=== PATIENT | female | born 1945 | race Two or more races ===

== ENCOUNTER 2024-12-23 10:53 | Inpatient (IN) | payer OTHER ==
[2024-12-23 11:40] VITALS: BMI 27.4
[2024-12-23 12:41] LABS: BASO % 0.5 % (0-2.0); HEMATOCRIT 31.6 % (32.4-45.2); HEMOGLOBIN 10.4 GM/dL (10.7-15.3); LYMPH % 19.7 % (8-40); MCH 27.8 pg (25.7-33.7); MCHC 32.8 g/dl (32.0-36.0); MEAN PLT VOLUME 9.6 fl (7.5-11.1); MONO % 13.8 % (3.8-10.2); PLATELET COUNT 184 10^3/uL (134-434); RBC 3.72 M/mm3 (3.60-5.2); RDW 20.4 % (11.6-15.6); WHITE BLOOD COUNT 6.3 K/mm3 (4.0-10.0)
[2024-12-23] MEDS: ACETAMINOPHEN 1000 MG/100 ML BAG IVPB ONE (12:45)
[2024-12-23] MEDS: SODIUM CHLORIDE 1,000 ML IV STA (12:45)
[2024-12-23 12:50] LABS: VENOUS BASE EXCESS -1.5 mmol/L (-2-2); VENOUS O2 SATURATION 85.9 % (70-80); VENOUS PCO2 32.2 mmHg (38-52); VENOUS PH 7.45 (7.310-7.410)
[2024-12-23 12:56] LABS: POTASSIUM 3.6 mmol/L (3.5-5.1)
[2024-12-23 12:58] LABS: BLOOD UREA NITROGEN 22.6 mg/dL (7-18); CALCIUM 7.6 mg/dL (8.5-10.1)
[2024-12-23 13:02] LABS: CREATININE 0.4 mg/dL (0.55-1.3)
[2024-12-23 13:03] LABS: BILIRUBIN,TOTAL 0.9 mg/dL (0.2-1); INR 1.72 (0.83-1.09); PROTHROMBIN TIME (PATIENT) 18.8 SEC (9.7-13.0); TOT PROT 5.6 g/dl (6.4-8.2)
[2024-12-23 13:06] LABS: ACTIVATED PTT 25.1 SECONDS (25.2-36.5)
[2024-12-23 14:30] LABS: EPI CELLS >36 /uL (0-25.1); HYALINE CASTS 37 /uL (0-3.1); PH,URINE 5.5 (5.0-8.0); URINE APPEARANCE CLOUDY; URINE BACTERIA 40 /uL (0-1359); URINE BILIRUBIN NEGATIVE (NEGATIVE); URINE COLOR DK YELLOW; URINE GLUCOSE (UA) NEGATIVE (NEGATIVE); URINE KETONE 1+ (NEGATIVE); URINE LEUK ESTERASE NEGATIVE (NEGATIVE); URINE NITRITE NEGATIVE (NEGATIVE); URINE PROTEIN 2+ (NEGATIVE); URINE RBC 33 /uL (0-23.9)
[2024-12-23] MEDS ORDERED: PIPERACILLIN/TAZOB 3.375 GM 3.375 GM/50 ML BAG IVPB ONE ×2 (15:04→15:09)
[2024-12-23] MEDS ORDERED: VANCOMYCIN 1 GM PREMIX (F) 1 GM/200 ML BAG ONE (15:04)
[2024-12-23] MEDS: PIPERACILLIN/TAZOB 3.375 GM 3.375 GM in DEXTROSE 5%-WATER - 50 ML IVPB ONE (15:14)
[2024-12-23] MEDS ORDERED: LACTATED RINGERS SOLUTION 1,000 ML/1,000 ML INFUS.BAG IV SCH (15:30)
[2024-12-23] MEDS: VANCOMYCIN 1 GM PREMIX (F) 1 GM/200 ML BAG IVPB ONE (15:33)
[2024-12-23] MEDS ORDERED: ACETAMINOPHEN 1000 MG/100 ML BAG IVPB PRN (15:49)
[2024-12-23] MEDS ORDERED: VALPROATE SODIUM 500 MG/5 ML VIAL IVPB SCH (16:00)
[2024-12-23] MEDS: SODIUM CHLORIDE 0.45% 1,000 ML IV SCH (19:54)
[2024-12-23] MEDS: MEROPENEM-0.9% SODIUM CHLORIDE 1 GM/50 ML BAG IVPB SCH (20:02)
[2024-12-23] MEDS: VALPROATE SODIUM INJECTION 250 MG in SODIUM CHLORIDE 100 ML IVPB SCH (20:30)
[2024-12-23] MEDS ORDERED: PIPERACILLIN/TAZOB 4.5 GM 4.5 GM/100 ML BAG IVPB SCH (21:00)
[2024-12-23] MEDS ORDERED: PIPERACILLIN/TAZOB 4.5 GM 4.5 GM in DEXTROSE 5%-WATER 100 ML IVPB SCH (21:00)
[2024-12-23] MEDS: HEPARIN NA (PORCINE) 5,000 UNITS/ML 1ML VIAL SQ SCH (21:59)
[2024-12-24] MEDS ORDERED: INSULIN (LEVEMIR) 100 UNITS/ML UNITS SQ ONE (06:09)
[2024-12-24 07:38] LABS: BASO % 0.3 % (0-2.0); EOS % 0.3 % (0-4.5); HEMATOCRIT 23.3 % (32.4-45.2); HEMOGLOBIN 7.7 GM/dL (10.7-15.3); LYMPH % 16.8 % (8-40); MCHC 33.1 g/dl (32.0-36.0); MEAN CELL VOLUME 84.4 fl (80-96); MEAN PLT VOLUME 9.2 fl (7.5-11.1); MONO % 13.2 % (3.8-10.2); NEUT % 69.4 % (42.8-82.8); PLATELET COUNT 160 10^3/uL (134-434); RBC 2.76 M/mm3 (3.60-5.2); RDW 19.7 % (11.6-15.6); WHITE BLOOD COUNT 5.2 K/mm3 (4.0-10.0)
[2024-12-24 07:55] LABS: CHLORIDE 114 mmol/L (98-107); SODIUM 146 mmol/L (136-145)
[2024-12-24 08:11] LABS: BLOOD UREA NITROGEN 14.9 mg/dL (7-18); CALCIUM 7.1 mg/dL (8.5-10.1); CO2 23 mmol/L (21-32); GLUCOSE,RANDOM 127 mg/dL (74-106)
[2024-12-24 08:15] LABS: CREATININE 0.2 mg/dL (0.55-1.3)
[2024-12-24 08:30] LABS: ANION GAP 9 mmol/L (4-13); POTASSIUM 2.8 mmol/L (3.5-5.1)
[2024-12-24] MEDS: KCL 10 MEQ IVPB 10 MEQ/100 ML INFUS.BAG IVPB SCH (11:52)
[2024-12-24 12:57] LABS: HEMATOCRIT 30.9 % (32.4-45.2); HEMOGLOBIN 10.2 GM/dL (10.7-15.3); MEAN CELL VOLUME 84.7 fl (80-96); MEAN PLT VOLUME 9.8 fl (7.5-11.1); PLATELET COUNT 174 10^3/uL (134-434); RBC 3.64 M/mm3 (3.60-5.2); RDW 19.5 % (11.6-15.6); WHITE BLOOD COUNT 6.3 K/mm3 (4.0-10.0)
[2024-12-24 12:58] LABS: HEMATOCRIT 30.5 % (32.4-45.2); MCH 27.9 pg (25.7-33.7); MCHC 32.8 g/dl (32.0-36.0); MEAN CELL VOLUME 85.3 fl (80-96); MEAN PLT VOLUME 9.7 fl (7.5-11.1); PLATELET COUNT 137 10^3/uL (134-434); RBC 3.58 M/mm3 (3.60-5.2); RDW 19.8 % (11.6-15.6); WHITE BLOOD COUNT 5.8 K/mm3 (4.0-10.0)
[2024-12-24 13:17] LABS: MAGNESIUM 1.3 mg/dL (1.8-2.4)
[2024-12-24 13:21] LABS: PHOSPHOROUS 1.7 mg/dL (2.5-4.9)
[2024-12-24 13:23] LABS: ANISOCYTOSIS 1+; MACROCYTOSIS 1+
[2024-12-24] MEDS: MAGNESIUM SULF 50% (8.12 MEQ/2 ML-1 GM VIAL) IVPB ONE (17:30)
[2024-12-24] MEDS: THIAMINE HCL 200 MG/2 ML VIAL IVPB SCH (17:30)
[2024-12-24] MEDS: PIPERACILLIN/TAZOB 3.375 GM 3.375 GM in DEXTROSE 5%-WATER - 50 ML IVPB SCH (19:02)
[2024-12-24] MEDS: PIPERACILLIN/TAZOB 3.375 GM 50 ML IVPB SCH (21:38)
[2024-12-24] MEDS: METOPROLOL TARTRATE 25 MG TABLET (FP) PO SCH (21:40)
[2024-12-24] MEDS: VANCOMYCIN 1 GM PREMIX (F) 1 GM/200 ML BAG IVPB SCH (23:22)
[2024-12-25 09:02] LABS: POTASSIUM 3.4 mmol/L (3.5-5.1)
[2024-12-25 09:06] LABS: ALBUMIN 1.8 g/dl (3.4-5.0); CALCIUM 7.2 mg/dL (8.5-10.1)
[2024-12-25 09:07] LABS: BLOOD UREA NITROGEN 6.9 mg/dL (7-18); MAGNESIUM 1.7 mg/dL (1.8-2.4)
[2024-12-25 09:10] LABS: CREATININE 0.2 mg/dL (0.55-1.3); HEMATOCRIT 28.5 % (32.4-45.2); HEMOGLOBIN 9.6 GM/dL (10.7-15.3); MCH 28.2 pg (25.7-33.7); MCHC 33.6 g/dl (32.0-36.0); RBC 3.39 M/mm3 (3.60-5.2); RDW 19.5 % (11.6-15.6); WHITE BLOOD COUNT 4.5 K/mm3 (4.0-10.0)
[2024-12-25 09:11] LABS: TOT PROT 5.1 g/dl (6.4-8.2)
[2024-12-25 09:15] LABS: PHOSPHOROUS 1.6 mg/dL (2.5-4.9)
[2024-12-25 09:16] LABS: BILIRUBIN,TOTAL 0.8 mg/dL (0.2-1)
[2024-12-25 10:04] LABS: ANISOCYTOSIS 0; MACROCYTOSIS 0; OVALOCYTE 1+
[2024-12-25] MEDS: MAGNESIUM SULFATE IN WATER 2 GM/50 ML IVPB IVPB ONE (11:32)
[2024-12-25] MEDS: MEROPENEM 1 GM in DEXTROSE 5%-WATER 100 ML IVPB SCH (11:34)
[2024-12-25] MEDS: POTASSIUM PHOSPHATE 30 MM in DEXTROSE 5%-WATER - 500 ML IVPB ONE (13:30)
[2024-12-26] MEDS: COLLAGENASE CLOSTRIDIUM HIST. 30 GRAMS TUBE TP SCH (14:24)
[2024-12-27] MEDS: VANCOMYCIN 1,000 MG in DEXTROSE 5%-WATER - 250 ML IVPB SCH (06:06)
[2024-12-27 12:13] LABS: BASO % 0.2 % (0-2.0); EOS % 0.8 % (0-4.5); HEMATOCRIT 28.5 % (32.4-45.2); HEMOGLOBIN 9.6 GM/dL (10.7-15.3); LYMPH % 28.9 % (8-40); MCHC 33.5 g/dl (32.0-36.0); MEAN CELL VOLUME 83.4 fl (80-96); MEAN PLT VOLUME 9.1 fl (7.5-11.1); NEUT % 61.1 % (42.8-82.8); PLATELET COUNT 244 10^3/uL (134-434); RBC 3.42 M/mm3 (3.60-5.2); RDW 19.5 % (11.6-15.6); WHITE BLOOD COUNT 2.7 K/mm3 (4.0-10.0)
[2024-12-27 12:28] LABS: CHLORIDE 102 mmol/L (98-107); SODIUM 141 mmol/L (136-145)
[2024-12-27 12:30] LABS: CALCIUM 7.7 mg/dL (8.5-10.1)
[2024-12-27 12:31] LABS: ALBUMIN 1.9 g/dl (3.4-5.0); BLOOD UREA NITROGEN 2.3 mg/dL (7-18); CO2 30 mmol/L (21-32); GLUCOSE,RANDOM 121 mg/dL (74-106); MAGNESIUM 1.3 mg/dL (1.8-2.4)
[2024-12-27 12:34] LABS: CREATININE 0.2 mg/dL (0.55-1.3); PHOSPHOROUS 2.5 mg/dL (2.5-4.9); SGOT/AST 22 U/L (15-37); SGPT/ALT 20 U/L (13-61)
[2024-12-27 12:35] LABS: BILIRUBIN,TOTAL 0.7 mg/dL (0.2-1); TOT PROT 5.3 g/dl (6.4-8.2)
[2024-12-27 12:36] LABS: ALK PHOS 61 U/L (45-117)
[2024-12-27 12:39] LABS: ANION GAP 9 mmol/L (4-13); POTASSIUM 2.9 mmol/L (3.5-5.1)
[2024-12-27] MEDS: KCL 10 MEQ IVPB 10 MEQ/100 ML INFUS.BAG IVPB SCH (14:12)
[2024-12-27] MEDS: MAGNESIUM SULFATE IN WATER 2 GM/50 ML IVPB IVPB ONE (14:15)
[2024-12-27] MEDS: D5-NS + 20 MEQ KCL - 20 MEQ/1,000 ML INFUS.BAG IV SCH ×2 (16:31→17:14)
[2024-12-27 19:46] LABS: CHLORIDE 103 mmol/L (98-107); POTASSIUM 3.5 mmol/L (3.5-5.1); SODIUM 140 mmol/L (136-145)
[2024-12-27 19:48] LABS: CALCIUM 7.5 mg/dL (8.5-10.1)
[2024-12-27 19:49] LABS: ANION GAP 7 mmol/L (4-13); CO2 30 mmol/L (21-32); GLUCOSE,RANDOM 112 mg/dL (74-106)
[2024-12-27 19:52] LABS: CREATININE 0.2 mg/dL (0.55-1.3)
[2024-12-27 20:21] LABS: BLOOD UREA NITROGEN 1.8 mg/dL (7-18)
[2024-12-28 07:21] LABS: CHLORIDE 104 mmol/L (98-107); POTASSIUM 3.1 mmol/L (3.5-5.1); SODIUM 141 mmol/L (136-145)
[2024-12-28 07:26] LABS: ALBUMIN 1.8 g/dl (3.4-5.0); BASO % 0.3 % (0-2.0); CALCIUM 7.4 mg/dL (8.5-10.1); EOS % 0.9 % (0-4.5); HEMATOCRIT 25.8 % (32.4-45.2); HEMOGLOBIN 8.7 GM/dL (10.7-15.3); LYMPH % 30.4 % (8-40); MCH 28.2 pg (25.7-33.7); MCHC 33.6 g/dl (32.0-36.0); MEAN CELL VOLUME 83.8 fl (80-96); MEAN PLT VOLUME 8.2 fl (7.5-11.1); MONO % 12.9 % (3.8-10.2); NEUT % 55.5 % (42.8-82.8); PLATELET COUNT 248 10^3/uL (134-434); RBC 3.08 M/mm3 (3.60-5.2); WHITE BLOOD COUNT 2.7 K/mm3 (4.0-10.0)
[2024-12-28 07:27] LABS: ANION GAP 6 mmol/L (4-13); CO2 31 mmol/L (21-32); GLUCOSE,RANDOM 136 mg/dL (74-106); MAGNESIUM 1.4 mg/dL (1.8-2.4)
[2024-12-28 07:29] LABS: CREATININE 0.2 mg/dL (0.55-1.3); PHOSPHOROUS 1.9 mg/dL (2.5-4.9); SGOT/AST 16 U/L (15-37); SGPT/ALT 18 U/L (13-61)
[2024-12-28 07:31] LABS: BILIRUBIN,TOTAL 0.7 mg/dL (0.2-1)
[2024-12-28 07:32] LABS: ALK PHOS 58 U/L (45-117)
[2024-12-28 07:43] LABS: BLOOD UREA NITROGEN 1.8 mg/dL (7-18)
[2024-12-28] MEDS: POTASSIUM CHLORIDE ORAL LIQUID 20 MEQ/15 ML NGT ONE (09:45)
[2024-12-28] MEDS: MAGNESIUM SULFATE IN WATER 2 GM/50 ML IVPB IVPB ONE (09:45)
[2024-12-28] MEDS: NAPH,MB-DB/K PH,MBDB POWDER PACKET NGT ONE (09:45)
[2024-12-28] MEDS: KCL 10 MEQ IVPB 10 MEQ/100 ML INFUS.BAG IVPB SCH (09:46)
[2024-12-28 17:14] LABS: CHLORIDE 108 mmol/L (98-107); POTASSIUM 4.4 mmol/L (3.5-5.1); SODIUM 142 mmol/L (136-145)
[2024-12-28 17:16] LABS: CALCIUM 7.5 mg/dL (8.5-10.1)
[2024-12-28 17:17] LABS: ALBUMIN 1.8 g/dl (3.4-5.0); ANION GAP 4 mmol/L (4-13); CO2 29 mmol/L (21-32); GLUCOSE,RANDOM 197 mg/dL (74-106); MAGNESIUM 2.1 mg/dL (1.8-2.4)
[2024-12-28 17:20] LABS: BLOOD UREA NITROGEN 1.5 mg/dL (7-18); CREATININE 0.2 mg/dL (0.55-1.3); PHOSPHOROUS 1.9 mg/dL (2.5-4.9); SGOT/AST 17 U/L (15-37); SGPT/ALT 17 U/L (13-61)
[2024-12-28 17:21] LABS: BILIRUBIN,TOTAL 0.5 mg/dL (0.2-1)
[2024-12-28 17:22] LABS: TOT PROT 5.2 g/dl (6.4-8.2)
[2024-12-28 17:23] LABS: ALK PHOS 59 U/L (45-117)
[2024-12-28] MEDS: NAPH,MB-DB/K PH,MBDB POWDER PACKET PO ONE (18:45)
[2024-12-29 08:35] LABS: BASO % 0.3 % (0-2.0); EOS % 0.4 % (0-4.5); HEMATOCRIT 27.5 % (32.4-45.2); HEMOGLOBIN 9.2 GM/dL (10.7-15.3); LYMPH % 29.7 % (8-40); MCH 28.5 pg (25.7-33.7); MCHC 33.5 g/dl (32.0-36.0); MEAN CELL VOLUME 85.1 fl (80-96); MEAN PLT VOLUME 8.2 fl (7.5-11.1); MONO % 11.1 % (3.8-10.2); NEUT % 58.5 % (42.8-82.8); PLATELET COUNT 267 10^3/uL (134-434); RBC 3.23 M/mm3 (3.60-5.2); RDW 21.4 % (11.6-15.6); WHITE BLOOD COUNT 3.4 K/mm3 (4.0-10.0)
[2024-12-29 08:48] LABS: POTASSIUM 4.1 mmol/L (3.5-5.1)
[2024-12-29 08:52] LABS: BLOOD UREA NITROGEN 4.4 mg/dL (7-18)
[2024-12-29 08:55] LABS: CALCIUM 8.1 mg/dL (8.5-10.1)
[2024-12-29 08:56] LABS: CREATININE 0.4 mg/dL (0.55-1.3); MAGNESIUM 1.8 mg/dL (1.8-2.4); PHOSPHOROUS 2.1 mg/dL (2.5-4.9)
[2024-12-29 10:19] LABS: ANISOCYTOSIS 1+; MACROCYTOSIS 0
[2024-12-29] MEDS: NAPH,MB-DB/K PH,MBDB POWDER PACKET NGT ONE (11:23)
[2024-12-30 07:45] LABS: BASO % 0.4 % (0-2.0); EOS % 0.9 % (0-4.5); HEMATOCRIT 26.8 % (32.4-45.2); LYMPH % 30.8 % (8-40); MCH 28.5 pg (25.7-33.7); MCHC 33.7 g/dl (32.0-36.0); MEAN CELL VOLUME 84.5 fl (80-96); MEAN PLT VOLUME 7.7 fl (7.5-11.1); MONO % 9.4 % (3.8-10.2); NEUT % 58.5 % (42.8-82.8); PLATELET COUNT 258 10^3/uL (134-434); RBC 3.16 M/mm3 (3.60-5.2); RDW 20.7 % (11.6-15.6)
[2024-12-30 08:07] LABS: POTASSIUM 3.9 mmol/L (3.5-5.1)
[2024-12-30 08:11] LABS: CALCIUM 8.1 mg/dL (8.5-10.1)
[2024-12-30 08:12] LABS: MAGNESIUM 1.4 mg/dL (1.8-2.4)
[2024-12-30 08:14] LABS: CREATININE 0.2 mg/dL (0.55-1.3); PHOSPHOROUS 3.4 mg/dL (2.5-4.9)
[2024-12-30] MEDS: MULTIVIT-MINERALS ORAL LIQUID PO SCH (09:55)
[2024-12-30] MEDS: MAGNESIUM SULFATE IN WATER 2 GM/50 ML IVPB IVPB ONE (09:58)
[2024-12-30] MEDS: ASCORBIC ACID 500 MG TABLET (FP) PO SCH (12:53)
[2024-12-31 03:13] VITALS: TEMP 97.5
[2024-12-31 13:00] VITALS: BP 139/79; PULSE 89; RESP 17
== END 2024-12-31 12:00 | DRG 871 ==
LOC: JER 10:53 → JERBED 15:14 → J4W 17:19
PROVIDERS: ADMIT Internal Medicine; ATTEND Internal Medicine
PROC: 05HB33Z Insertion of Infusion Device into Right Basilic Vein, Percutaneous Approach (ICD-10-PCS; principal; 2024-12-24)
PROC: 0DH67UZ Insertion of Feeding Device into Stomach, Via Natural or Artificial Opening (ICD-10-PCS; 2024-12-26)
PROC: 3E0G76Z Introduction of Nutritional Substance into Upper GI, Via Natural or Artificial Opening (ICD-10-PCS; 2024-12-26)
DX: A41.89 Other specified sepsis (principal); R53.2 Functional quadriplegia; G81.91 Hemiplegia, unspecified affecting right dominant side; N39.0 Urinary tract infection, site not specified; E87.0 Hyperosmolality and hypernatremia; R47.01 Aphasia; I47.10 Supraventricular tachycardia, unspecified; I10 Essential (primary) hypertension; E11.9 Type 2 diabetes mellitus without complications; E78.5 Hyperlipidemia, unspecified; R56.9 Unspecified convulsions; L89.022 Pressure ulcer of left elbow, stage 2; L89.012 Pressure ulcer of right elbow, stage 2; L89.896 Pressure-induced deep tissue damage of other site; L89.626 Pressure-induced deep tissue damage of left heel; R13.10 Dysphagia, unspecified
CPT/HCPCS: 0241U-QW; 36415; 70450-TC; 71045-TC-FY; 71250-TC; 80048; 80053; 81003; 82140; 82272; 82803; 82962; 83605; 83735; 84100; 84132; 84439; 84443; 84484; 85025; 85027; 85610; 85730; 86850; 86900; 86901; 87040; 87086; 93005; 93010; 93306-TC; 93971; 95816; 99285-25; J0131; J1644

== ENCOUNTER 2025-01-13 01:23 | Inpatient (IN) | payer OTHER ==
[2025-01-13 02:27] LABS: VENOUS BASE EXCESS 1.3 mmol/L (-2-2); VENOUS O2 SATURATION 53.9 % (70-80); VENOUS PCO2 40.7 mmHg (38-52); VENOUS PH 7.421 (7.310-7.410)
[2025-01-13 02:28] LABS: BASO % 0.5 % (0-2.0); EOS % 0.5 % (0-4.5); HEMATOCRIT 31.5 % (32.4-45.2); HEMOGLOBIN 10.3 GM/dL (10.7-15.3); LYMPH % 44.5 % (8-40); MCH 28.8 pg (25.7-33.7); MCHC 32.6 g/dl (32.0-36.0); MEAN CELL VOLUME 88.2 fl (80-96); MEAN PLT VOLUME 8.4 fl (7.5-11.1); NEUT % 43.5 % (42.8-82.8); PLATELET COUNT 215 10^3/uL (134-434); RBC 3.57 M/mm3 (3.60-5.2); RDW 21.1 % (11.6-15.6); WHITE BLOOD COUNT 2.5 K/mm3 (4.0-10.0)
[2025-01-13 02:42] LABS: POTASSIUM 4.3 mmol/L (3.5-5.1)
[2025-01-13 02:44] LABS: CALCIUM 8.2 mg/dL (8.5-10.1)
[2025-01-13 02:45] LABS: ALBUMIN 2.2 g/dl (3.4-5.0); BLOOD UREA NITROGEN 12.9 mg/dL (7-18)
[2025-01-13 02:48] LABS: CREATININE 0.2 mg/dL (0.55-1.3)
[2025-01-13 02:49] LABS: BILIRUBIN,TOTAL 0.8 mg/dL (0.2-1)
[2025-01-13] MEDS: SODIUM CHLORIDE 0.9% 500 ML INFUS.BAG IV ONE (03:23)
[2025-01-13 04:09] LABS: ANISOCYTOSIS 1+
[2025-01-13 04:10] LABS: OVALOCYTE 1+
[2025-01-13 04:13] LABS: URINE APPEARANCE Clear; URINE BILIRUBIN 1+ (NEGATIVE); URINE COLOR Yellow; URINE GLUCOSE (UA) Negative (NEGATIVE); URINE KETONE 3+ (NEGATIVE); URINE LEUK ESTERASE Negative (NEGATIVE); URINE NITRITE Negative (NEGATIVE); URINE PROTEIN 2+ (NEGATIVE)
[2025-01-13] MEDS ORDERED: INSULIN ASPART SLIDING SCALE (NOVOLOG) 1 VIAL SQ SCH (07:00)
[2025-01-13] MEDS: DIVALPROEX SODIUM 250 MG TABLET E.C. PO SCH ×2 (10:51→22:56)
[2025-01-13] MEDS: FOLIC ACID 1 MG TABLET (FP) PO SCH (10:51)
[2025-01-13] MEDS: METOPROLOL TARTRATE 25 MG TABLET (FP) PO SCH (10:52)
[2025-01-13 12:23] LABS: HEMATOCRIT 26.8 % (32.4-45.2); HEMOGLOBIN 8.6 GM/dL (10.7-15.3); MCH 28.3 pg (25.7-33.7); MCHC 31.9 g/dl (32.0-36.0); MEAN CELL VOLUME 88.6 fl (80-96); MEAN PLT VOLUME 7.3 fl (7.5-11.1); PLATELET COUNT 182 10^3/uL (134-434); RBC 3.03 M/mm3 (3.60-5.2); RDW 20.8 % (11.6-15.6); WHITE BLOOD COUNT 2.6 K/mm3 (4.0-10.0)
[2025-01-13 12:40] LABS: CHLORIDE 109 mmol/L (98-107); SODIUM 144 mmol/L (136-145)
[2025-01-13 12:41] LABS: POTASSIUM 2.5 mmol/L (3.5-5.1)
[2025-01-13 12:44] LABS: CALCIUM 7.5 mg/dL (8.5-10.1)
[2025-01-13 12:45] LABS: ALBUMIN 1.9 g/dl (3.4-5.0); ANION GAP 4 mmol/L (4-13); BLOOD UREA NITROGEN 8.9 mg/dL (7-18); CO2 31 mmol/L (21-32); GLUCOSE,RANDOM 88 mg/dL (74-106)
[2025-01-13] MEDS ORDERED: METOPROLOL TARTRATE 5 MG/5 ML VIAL IVPUSH SCH (12:45)
[2025-01-13 12:48] LABS: SGOT/AST 8 U/L (15-37); SGPT/ALT 7 U/L (13-61)
[2025-01-13 12:50] LABS: BILIRUBIN,TOTAL 0.5 mg/dL (0.2-1); TOT PROT 4.9 g/dl (6.4-8.2)
[2025-01-13 12:51] LABS: ALK PHOS 55 U/L (45-117)
[2025-01-13 13:25] LABS: CREATININE < 0.2 mg/dL (0.55-1.3)
[2025-01-13] MEDS: DEXTROSE 5%-LACTATED RINGERS 1,000 ML IV SCH (13:28)
[2025-01-13] MEDS: KCL 10 MEQ IVPB 10 MEQ/100 ML INFUS.BAG IVPB SCH (13:34)
[2025-01-13] MEDS: INSULIN ASPART SLIDING SCALE (NOVOLOG) 1 VIAL SQ SCH (16:10)
[2025-01-13] MEDS: ENOXAPARIN NA (PORCINE) 40 MG/0.4 ML DISP.SYRIN SQ SCH (17:17)
[2025-01-13] MEDS ORDERED: ATORVASTATIN CA 10 MG TABLET (FP) PO SCH (22:00)
[2025-01-13] MEDS: METOPROLOL TARTRATE 5 MG/5 ML VIAL IVPB SCH (22:00)
[2025-01-13] MEDS ORDERED: DIVALPROEX SODIUM 500 MG TABLET E.C. PO SCH (22:00)
[2025-01-13] MEDS: ATORVASTATIN CA 10 MG TABLET (FP) PO SCH (22:56)
[2025-01-14 00:47] LABS: POTASSIUM 3.8 mmol/L (3.5-5.1)
[2025-01-14 00:51] LABS: CALCIUM 7.4 mg/dL (8.5-10.1)
[2025-01-14 00:52] LABS: BLOOD UREA NITROGEN 6.8 mg/dL (7-18)
[2025-01-14 00:55] LABS: CREATININE 0.2 mg/dL (0.55-1.3)
[2025-01-14] MEDS ORDERED: VALPROATE SODIUM 500 MG/5 ML VIAL IVPB ONE (01:19)
[2025-01-14] MEDS: VALPROATE SODIUM INJECTION 250 MG in SODIUM CHLORIDE 100 ML IVPB ONE (04:26)
[2025-01-14] MEDS ORDERED: VALPROATE SODIUM 500 MG/5 ML VIAL IVPB SCH (10:00)
[2025-01-14] MEDS ORDERED: ASPIRIN 81 MG CHEWABLE TABLETS PO SCH (10:00)
[2025-01-14] MEDS ORDERED: VALPROATE SODIUM INJECTION 250 MG in SODIUM CHLORIDE 100 ML IVPB SCH (10:00)
[2025-01-14] MEDS: ASPIRIN 81 MG CHEWABLE TABLETS PO SCH (13:17)
[2025-01-14] MEDS: FOLIC ACID 1 MG TABLET (FP) PO SCH (13:18)
[2025-01-14] MEDS: DIVALPROEX SODIUM 500 MG TABLET E.C. PO SCH (13:18)
[2025-01-14] MEDS: DEXTROSE 5%-LACTATED RINGERS 1,000 ML IV SCH (14:34)
[2025-01-14] MEDS: INSULIN ASPART SLIDING SCALE (NOVOLOG) 1 VIAL SQ SCH (14:39)
[2025-01-14 15:33] VITALS: BMI 18.6
[2025-01-14] MEDS: COLLAGENASE CLOSTRIDIUM HIST. 30 GRAMS TUBE TP SCH (17:30)
[2025-01-14] MEDS: ATORVASTATIN CA 10 MG TABLET (FP) PO SCH (21:26)
[2025-01-15] MEDS: THIAMINE 100 MG TABLET PO SCH (10:00)
[2025-01-15] MEDS: FERROUS SO4 325 MG TABLET (FP) PO SCH (10:00)
[2025-01-15 13:51] LABS: BASO % 0.2 % (0-2.0); EOS % 0.3 % (0-4.5); HEMATOCRIT 30.9 % (32.4-45.2); HEMOGLOBIN 10.3 GM/dL (10.7-15.3); LYMPH % 29.2 % (8-40); MCH 29.6 pg (25.7-33.7); MCHC 33.5 g/dl (32.0-36.0); MEAN CELL VOLUME 88.3 fl (80-96); MEAN PLT VOLUME 7.6 fl (7.5-11.1); MONO % 9.7 % (3.8-10.2); NEUT % 60.6 % (42.8-82.8); PLATELET COUNT 212 10^3/uL (134-434); RDW 21.1 % (11.6-15.6); WHITE BLOOD COUNT 3.1 K/mm3 (4.0-10.0)
[2025-01-15 14:12] LABS: CHLORIDE 101 mmol/L (98-107); POTASSIUM 3.1 mmol/L (3.5-5.1); SODIUM 140 mmol/L (136-145)
[2025-01-15 14:13] LABS: CALCIUM 7.6 mg/dL (8.5-10.1)
[2025-01-15 14:14] LABS: ANION GAP 9 mmol/L (4-13); CO2 29 mmol/L (21-32); GLUCOSE,RANDOM 84 mg/dL (74-106)
[2025-01-15 14:15] LABS: MAGNESIUM 0.9 mg/dL (1.8-2.4)
[2025-01-15 14:17] LABS: PHOSPHOROUS 3.5 mg/dL (2.5-4.9)
[2025-01-15 14:25] LABS: CREATININE < 0.2 mg/dL (0.55-1.3)
[2025-01-15] MEDS: MAGNESIUM SULFATE IN WATER 2 GM/50 ML IVPB IVPB ONE ×2 (16:56→20:22)
[2025-01-15] MEDS: KCL 10 MEQ IVPB 10 MEQ/100 ML INFUS.BAG IVPB SCH (18:39)
[2025-01-16] MEDS: KCL 10 MEQ IVPB 10 MEQ/100 ML INFUS.BAG IVPB SCH (00:23)
[2025-01-16] MEDS: MAGNESIUM SULFATE IN WATER 2 GM/50 ML IVPB IVPB ONE (03:08)
[2025-01-16 07:04] LABS: BASO % 0.3 % (0-2.0); EOS % 0.1 % (0-4.5); HEMATOCRIT 27.6 % (32.4-45.2); HEMOGLOBIN 9.1 GM/dL (10.7-15.3); LYMPH % 25.7 % (8-40); MCH 29.4 pg (25.7-33.7); MCHC 32.9 g/dl (32.0-36.0); MEAN CELL VOLUME 89.3 fl (80-96); MEAN PLT VOLUME 6.4 fl (7.5-11.1); MONO % 12.6 % (3.8-10.2); NEUT % 61.3 % (42.8-82.8); PLATELET COUNT 252 10^3/uL (134-434); RBC 3.09 M/mm3 (3.60-5.2); RDW 20.7 % (11.6-15.6); WHITE BLOOD COUNT 4.1 K/mm3 (4.0-10.0)
[2025-01-16 07:19] LABS: CHLORIDE 100 mmol/L (98-107); POTASSIUM 4.1 mmol/L (3.5-5.1); SODIUM 135 mmol/L (136-145)
[2025-01-16 07:24] LABS: CALCIUM 7.6 mg/dL (8.5-10.1)
[2025-01-16 07:25] LABS: ALBUMIN 2.1 g/dl (3.4-5.0); ANION GAP 8 mmol/L (4-13); CO2 28 mmol/L (21-32); GLUCOSE,RANDOM 88 mg/dL (74-106); MAGNESIUM 2.6 mg/dL (1.8-2.4)
[2025-01-16 07:28] LABS: PHOSPHOROUS 3.1 mg/dL (2.5-4.9); SGOT/AST 17 U/L (15-37); SGPT/ALT 8 U/L (13-61)
[2025-01-16 07:29] LABS: BILIRUBIN,TOTAL 0.9 mg/dL (0.2-1); TOT PROT 5.1 g/dl (6.4-8.2)
[2025-01-16 07:30] LABS: ALK PHOS 68 U/L (45-117)
[2025-01-16 08:07] LABS: CREATININE < 0.2 mg/dL (0.55-1.3)
[2025-01-16] MEDS: VALPROATE SODIUM 250 MG/5 ML UNIT DOSE CUP PO SCH (22:06)
[2025-01-16] MEDS: ATORVASTATIN CA 20 MG TABLET (FP) PO SCH (22:06)
[2025-01-18 08:09] LABS: INR 1.1 (0.83-1.09); PROTHROMBIN TIME (PATIENT) 12.1 SEC (9.7-13.0)
[2025-01-18 08:11] LABS: BASO % 0.3 % (0-2.0); EOS % 0.3 % (0-4.5); LYMPH % 25.1 % (8-40); MCH 29.7 pg (25.7-33.7); MCHC 33.3 g/dl (32.0-36.0); MEAN CELL VOLUME 89.3 fl (80-96); MEAN PLT VOLUME 6.4 fl (7.5-11.1); MONO % 12.3 % (3.8-10.2); PLATELET COUNT 299 10^3/uL (134-434); RBC 3.36 M/mm3 (3.60-5.2); RDW 20.5 % (11.6-15.6); WHITE BLOOD COUNT 5.7 K/mm3 (4.0-10.0)
[2025-01-18 08:14] LABS: POTASSIUM 4.3 mmol/L (3.5-5.1)
[2025-01-18 08:21] LABS: BLOOD UREA NITROGEN 7.4 mg/dL (7-18)
[2025-01-18 08:22] LABS: CALCIUM 7.7 mg/dL (8.5-10.1)
[2025-01-18 08:23] LABS: CREATININE 0.2 mg/dL (0.55-1.3); MAGNESIUM 1.3 mg/dL (1.8-2.4); PHOSPHOROUS 2.8 mg/dL (2.5-4.9)
[2025-01-18] MEDS: MAGNESIUM 2GM/50ML STERILE WATER IVPB IVPB ONE (09:42)
[2025-01-18] MEDS: SODIUM CHLORIDE 1 GM TABLET PO SCH (12:31)
[2025-01-18 19:28] LABS: EPI CELLS >36 /uL (0-25.1); HYALINE CASTS 1 /uL (0-3.1); PH,URINE 7.5 (5.0-8.0); URINE APPEARANCE TURBID; URINE BACTERIA 4981 /uL (0-1359); URINE BILIRUBIN NEGATIVE (NEGATIVE); URINE COLOR YELLOW; URINE GLUCOSE (UA) NEGATIVE (NEGATIVE); URINE KETONE 1+ (NEGATIVE); URINE LEUK ESTERASE 2+ (NEGATIVE); URINE NITRITE NEGATIVE (NEGATIVE); URINE PROTEIN 1+ (NEGATIVE); URINE RBC 141 /uL (0-23.9); URINE UROBILINOGEN 4.0 E.U/dl mg/dL (0.2-1.0)
[2025-01-18] MEDS: VALPROATE SODIUM 250 MG/5 ML UNIT DOSE CUP GT SCH (21:18)
[2025-01-18] MEDS: ATORVASTATIN CA 20 MG TABLET (FP) GT SCH (21:19)
[2025-01-18] MEDS: SODIUM CHLORIDE 1 GM TABLET GT SCH (21:19)
[2025-01-18] MEDS: METOPROLOL TARTRATE 25 MG TABLET (FP) GT SCH (21:19)
[2025-01-19 07:40] LABS: HEMATOCRIT 28.8 % (32.4-45.2); HEMOGLOBIN 9.5 GM/dL (10.7-15.3); MCH 29.4 pg (25.7-33.7); MCHC 32.9 g/dl (32.0-36.0); MEAN CELL VOLUME 89.3 fl (80-96); MEAN PLT VOLUME 6.3 fl (7.5-11.1); PLATELET COUNT 326 10^3/uL (134-434); RBC 3.23 M/mm3 (3.60-5.2); RDW 20.2 % (11.6-15.6); WHITE BLOOD COUNT 4.8 K/mm3 (4.0-10.0)
[2025-01-19 08:28] LABS: ALK PHOS 67 U/L (45-117)
[2025-01-19 08:56] LABS: CHLORIDE 100 mmol/L (98-107); POTASSIUM 4.2 mmol/L (3.5-5.1); SODIUM 135 mmol/L (136-145)
[2025-01-19 08:58] LABS: ANION GAP 8 mmol/L (4-13); BLOOD UREA NITROGEN 10.4 mg/dL (7-18); CALCIUM 7.9 mg/dL (8.5-10.1); CO2 26 mmol/L (21-32); GLUCOSE,RANDOM 128 mg/dL (74-106)
[2025-01-19 09:01] LABS: CREATININE < 0.2 mg/dL (0.55-1.3); SGOT/AST 12 U/L (15-37); SGPT/ALT 9 U/L (13-61)
[2025-01-19 09:03] LABS: BILIRUBIN,TOTAL 0.6 mg/dL (0.2-1)
[2025-01-19 09:57] LABS: TOT PROT 5.4 g/dl (6.4-8.2)
[2025-01-19] MEDS: THIAMINE 100 MG TABLET NGT SCH (10:46)
[2025-01-19] MEDS: FOLIC ACID 1 MG TABLET (FP) GT SCH (10:46)
[2025-01-19] MEDS: FERROUS SO4 300 MG/5 ML ORAL SOLN UNIT DOSE CUPS GT SCH (10:46)
[2025-01-19 12:52] LABS: MAGNESIUM 1.5 mg/dL (1.8-2.4)
[2025-01-19 12:56] LABS: PHOSPHOROUS 3.6 mg/dL (2.5-4.9)
[2025-01-19] MEDS: MAGNESIUM SULF 50% (8.12 MEQ/2 ML-1 GM VIAL) IVPB ONE (17:15)
[2025-01-19] MEDS: CEFTRIAXONE 1 G/50 ML PREMIX 50 ML IVPB SCH (18:20)
[2025-01-20 07:44] LABS: HEMATOCRIT 26.9 % (32.4-45.2); MCH 29.7 pg (25.7-33.7); MCHC 33.4 g/dl (32.0-36.0); MEAN PLT VOLUME 6.6 fl (7.5-11.1); PLATELET COUNT 296 10^3/uL (134-434); RBC 3.02 M/mm3 (3.60-5.2); RDW 19.9 % (11.6-15.6); WHITE BLOOD COUNT 3.6 K/mm3 (4.0-10.0)
[2025-01-20 07:49] LABS: POTASSIUM 4.3 mmol/L (3.5-5.1)
[2025-01-20 07:57] LABS: CALCIUM 7.7 mg/dL (8.5-10.1)
[2025-01-20 07:58] LABS: ALBUMIN 1.8 g/dl (3.4-5.0); BLOOD UREA NITROGEN 16.5 mg/dL (7-18)
[2025-01-20 08:00] LABS: CREATININE 0.2 mg/dL (0.55-1.3)
[2025-01-20 08:04] LABS: BILIRUBIN,TOTAL 0.5 mg/dL (0.2-1)
[2025-01-21 07:10] LABS: HEMATOCRIT 25.5 % (32.4-45.2); HEMOGLOBIN 8.5 GM/dL (10.7-15.3); MCH 29.9 pg (25.7-33.7); MCHC 33.4 g/dl (32.0-36.0); MEAN CELL VOLUME 89.4 fl (80-96); MEAN PLT VOLUME 6.8 fl (7.5-11.1); PLATELET COUNT 305 10^3/uL (134-434); RBC 2.86 M/mm3 (3.60-5.2); RDW 19.2 % (11.6-15.6); WHITE BLOOD COUNT 4.1 K/mm3 (4.0-10.0)
[2025-01-21 07:23] LABS: POTASSIUM 4.4 mmol/L (3.5-5.1)
[2025-01-21 07:30] LABS: CREATININE 0.2 mg/dL (0.55-1.3)
[2025-01-21 07:32] LABS: ALBUMIN 1.8 g/dl (3.4-5.0); BILIRUBIN,TOTAL 0.3 mg/dL (0.2-1); CALCIUM 7.6 mg/dL (8.5-10.1); TOT PROT 4.9 g/dl (6.4-8.2)
[2025-01-22 07:19] LABS: HEMATOCRIT 26.2 % (32.4-45.2); HEMOGLOBIN 8.8 GM/dL (10.7-15.3); MCH 29.9 pg (25.7-33.7); MCHC 33.4 g/dl (32.0-36.0); MEAN CELL VOLUME 89.4 fl (80-96); MEAN PLT VOLUME 6.9 fl (7.5-11.1); PLATELET COUNT 331 10^3/uL (134-434); POTASSIUM 4.4 mmol/L (3.5-5.1); RBC 2.93 M/mm3 (3.60-5.2); RDW 19.3 % (11.6-15.6); WHITE BLOOD COUNT 3.6 K/mm3 (4.0-10.0)
[2025-01-22 07:22] LABS: ALBUMIN 1.8 g/dl (3.4-5.0); BLOOD UREA NITROGEN 14.7 mg/dL (7-18)
[2025-01-22 07:25] LABS: CREATININE 0.2 mg/dL (0.55-1.3)
[2025-01-22 07:26] LABS: BILIRUBIN,TOTAL 0.4 mg/dL (0.2-1)
[2025-01-22 07:27] LABS: TOT PROT 5.2 g/dl (6.4-8.2)
[2025-01-22] MEDS ORDERED: FENTANYL CITRATE/PF 50 MCG/ML VIAL ONE (12:07)
[2025-01-22] MEDS ORDERED: MIDAZOLAM HCL 2 MG/2 ML SINGLE DOSE VIAL ONE (12:13)
[2025-01-22] MEDS: MIDAZOLAM HCL 2 MG/2 ML SINGLE DOSE VIAL IVPB ONE (12:16)
[2025-01-22] MEDS: DEXTROSE 5%-NORMAL SALINE 1,000 ML IV SCH (19:23)
[2025-01-22] MEDS: VALPROATE SODIUM INJECTION 500 MG in SODIUM CHLORIDE 100 ML IVPB SCH (21:45)
[2025-01-22] MEDS ORDERED: VALPROATE SODIUM 500 MG/5 ML VIAL IVPB SCH (22:00)
[2025-01-23 07:27] LABS: HEMATOCRIT 26.6 % (32.4-45.2); HEMOGLOBIN 8.9 GM/dL (10.7-15.3); MCH 29.9 pg (25.7-33.7); MCHC 33.4 g/dl (32.0-36.0); MEAN CELL VOLUME 89.6 fl (80-96); MEAN PLT VOLUME 6.8 fl (7.5-11.1); PLATELET COUNT 343 10^3/uL (134-434); RBC 2.97 M/mm3 (3.60-5.2); RDW 18.9 % (11.6-15.6); WHITE BLOOD COUNT 4.3 K/mm3 (4.0-10.0)
[2025-01-23 07:44] LABS: POTASSIUM 3.7 mmol/L (3.5-5.1)
[2025-01-23 07:49] LABS: BLOOD UREA NITROGEN 13.1 mg/dL (7-18)
[2025-01-23 07:52] LABS: CREATININE 0.2 mg/dL (0.55-1.3)
[2025-01-23 07:53] LABS: BILIRUBIN,TOTAL 0.5 mg/dL (0.2-1); TOT PROT 5.4 g/dl (6.4-8.2)
[2025-01-23] MEDS ORDERED: VALPROATE SODIUM 500 MG/5 ML VIAL IVPB ONE ×3 (08:21→22:00)
[2025-01-23] MEDS ORDERED: VALPROATE SODIUM INJECTION 500 MG in SODIUM CHLORIDE 100 ML IVPB NR (09:30)
[2025-01-23] MEDS: ENOXAPARIN NA (PORCINE) 40 MG/0.4 ML DISP.SYRIN SQ SCH (10:57)
[2025-01-23] MEDS: VALPROATE SODIUM INJECTION 750 MG in SODIUM CHLORIDE 100 ML IVPB NR (10:59)
[2025-01-23] MEDS: DIVALPROEX SODIUM 125 MG SPRINKLE CAPS PO SCH (13:28)
[2025-01-23] MEDS: VALPROATE SODIUM INJECTION 750 MG in SODIUM CHLORIDE 100 ML IVPB ONE (13:47)
[2025-01-23] MEDS: VALPROATE SODIUM 500 MG/5 ML VIAL IVPB ONE (13:48)
[2025-01-23] MEDS ORDERED: DIVALPROEX SODIUM 125 MG SPRINKLE CAPS PO SCH (22:00)
[2025-01-23] MEDS: VALPROATE SODIUM INJECTION 500 MG in SODIUM CHLORIDE 100 ML IVPB ONE (23:27)
[2025-01-24 07:58] LABS: POTASSIUM 3.6 mmol/L (3.5-5.1)
[2025-01-24 08:01] LABS: HEMATOCRIT 29.7 % (32.4-45.2); HEMOGLOBIN 10.1 GM/dL (10.7-15.3); MCH 30.1 pg (25.7-33.7); MCHC 33.9 g/dl (32.0-36.0); MEAN CELL VOLUME 88.8 fl (80-96); MEAN PLT VOLUME 6.7 fl (7.5-11.1); PLATELET COUNT 341 10^3/uL (134-434); RBC 3.35 M/mm3 (3.60-5.2); RDW 18.8 % (11.6-15.6); WHITE BLOOD COUNT 3.3 K/mm3 (4.0-10.0)
[2025-01-24 08:02] LABS: CALCIUM 8.5 mg/dL (8.5-10.1)
[2025-01-24 08:03] LABS: ALBUMIN 2.2 g/dl (3.4-5.0); BLOOD UREA NITROGEN 13.4 mg/dL (7-18)
[2025-01-24 08:05] LABS: CREATININE 0.2 mg/dL (0.55-1.3)
[2025-01-24 08:07] LABS: BILIRUBIN,TOTAL 0.6 mg/dL (0.2-1); TOT PROT 6.1 g/dl (6.4-8.2)
[2025-01-24] MEDS ORDERED: VALPROATE SODIUM 500 MG/5 ML VIAL IVPB ONE (10:00)
[2025-01-24] MEDS: VALPROATE SODIUM INJECTION 750 MG in SODIUM CHLORIDE 100 ML IVPB ONE (10:30)
[2025-01-24] MEDS: D5-NS + 20 MEQ KCL - 20 MEQ/1,000 ML INFUS.BAG IV SCH (17:38)
[2025-01-24] MEDS: VALPROATE SODIUM 250 MG/5 ML UNIT DOSE CUP PO SCH (21:55)
[2025-01-25 07:30] LABS: HEMATOCRIT 25.6 % (32.4-45.2); HEMOGLOBIN 8.6 GM/dL (10.7-15.3); MCH 29.7 pg (25.7-33.7); MCHC 33.4 g/dl (32.0-36.0); MEAN CELL VOLUME 88.9 fl (80-96); MEAN PLT VOLUME 6.7 fl (7.5-11.1); PLATELET COUNT 292 10^3/uL (134-434); RBC 2.88 M/mm3 (3.60-5.2); RDW 18.6 % (11.6-15.6); WHITE BLOOD COUNT 2.7 K/mm3 (4.0-10.0)
[2025-01-25 07:54] LABS: CHLORIDE 106 mmol/L (98-107); POTASSIUM 3.6 mmol/L (3.5-5.1); SODIUM 140 mmol/L (136-145)
[2025-01-25 08:08] LABS: GLUCOSE,RANDOM 116 mg/dL (74-106)
[2025-01-25 08:09] LABS: ANION GAP 7 mmol/L (4-13); BLOOD UREA NITROGEN 15.4 mg/dL (7-18); CALCIUM 8.2 mg/dL (8.5-10.1); CO2 27 mmol/L (21-32); CREATININE < 0.2 mg/dL (0.55-1.3); MAGNESIUM 1.5 mg/dL (1.8-2.4); PHOSPHOROUS 3.4 mg/dL (2.5-4.9)
[2025-01-25] MEDS: MAGNESIUM SULFATE IN WATER 2 GM/50 ML IVPB IVPB ONE (08:47)
[2025-01-25] MEDS: VALPROATE SODIUM 250 MG/5 ML UNIT DOSE CUP PO SCH (09:53)
[2025-01-25] MEDS: VALPROATE SODIUM 500 MG/5 ML VIAL IVPB ONE (15:09)
[2025-01-26] MEDS: ASPIRIN COATED 81 MG TABLET.EC PO ONE (15:46)
[2025-01-26] MEDS ORDERED: VALPROATE SODIUM 500 MG/5 ML VIAL IVPB ONE (21:14)
[2025-01-26] MEDS: ATORVASTATIN CA 20 MG TABLET (FP) GT SCH (22:58)
[2025-01-26] MEDS: METOPROLOL TARTRATE 25 MG TABLET (FP) GT SCH (22:59)
[2025-01-26] MEDS: VALPROATE SODIUM 250 MG/5 ML UNIT DOSE CUP GT SCH (22:59)
[2025-01-27] MEDS: INSULIN ASPART SLIDING SCALE (NOVOLOG) 1 VIAL SQ SCH (00:35)
[2025-01-27 09:16] LABS: ABSOLUTE IMMATURE GRANULOCYTES 0.04 x10^3/uL (0.0-0.031); BASOPHILS # 0.01 x10^3/uL (0.01-0.08); EOSINOPHIL % 0.3 % (0.7-5.8); EOSINOPHILS # 0.01 x10^3/uL (0.04-0.36); HEMATOCRIT 26.4 % (34.1-44.9); HEMOGLOBIN 8.1 g/dL (11.2-15.7); MCHC 30.7 g/dl (32.2-35.5); MEAN CELL VOLUME 93.6 fl (79.4-94.8); MEAN PLT VOLUME 8.8 fl (9.4-12.3); MONOCYTE # 0.49 x10^3/uL (0.24-0.86); PLATELET COUNT # 206 x10^3/uL (182-369); RDW 17.6 % (12.4-16.6)
[2025-01-27 09:49] LABS: CHLORIDE 106 mmol/L (98-107); POTASSIUM 3.4 mmol/L (3.5-5.1); SODIUM 141 mmol/L (136-145)
[2025-01-27] MEDS ORDERED: ASPIRIN COATED 81 MG TABLET.EC PO SCH (10:00)
[2025-01-27 10:04] LABS: ALBUMIN 1.9 g/dl (3.4-5.0); ANION GAP 5 mmol/L (4-13); BLOOD UREA NITROGEN 19.3 mg/dL (7-18); CO2 30 mmol/L (21-32); GLUCOSE,RANDOM 100 mg/dL (74-106)
[2025-01-27 10:07] LABS: SGOT/AST 8 U/L (15-37); SGPT/ALT 7 U/L (13-61)
[2025-01-27 10:09] LABS: BILIRUBIN,TOTAL 0.5 mg/dL (0.2-1); TOT PROT 4.9 g/dl (6.4-8.2)
[2025-01-27 10:10] LABS: ALK PHOS 56 U/L (45-117); CREATININE < 0.2 mg/dL (0.55-1.3)
[2025-01-27] MEDS: FOLIC ACID 1 MG TABLET (FP) GT SCH (10:22)
[2025-01-27] MEDS: VALPROATE SODIUM 250 MG/5 ML UNIT DOSE CUP GT SCH (10:22)
[2025-01-27] MEDS: THIAMINE 100 MG TABLET NGT SCH (10:22)
[2025-01-27] MEDS: FERROUS SO4 300 MG/5 ML ORAL SOLN UNIT DOSE CUPS GT SCH (10:23)
[2025-01-27] MEDS: ENOXAPARIN NA (PORCINE) 40 MG/0.4 ML DISP.SYRIN SQ SCH (10:23)
[2025-01-27] MEDS: ASPIRIN COATED 81 MG TABLET.EC PO SCH (10:23)
[2025-01-27] MEDS: COLLAGENASE CLOSTRIDIUM HIST. 30 GRAMS TUBE TP SCH (10:23)
[2025-01-27] MEDS: POTASSIUM CHLORIDE ORAL LIQUID 20 MEQ/15 ML GT ONE (12:09)
[2025-01-28 09:06] LABS: POTASSIUM 4.3 mmol/L (3.5-5.1)
[2025-01-28 09:13] LABS: BLOOD UREA NITROGEN 13.9 mg/dL (7-18); CALCIUM 8.1 mg/dL (8.5-10.1)
[2025-01-28 09:14] LABS: MAGNESIUM 1.7 mg/dL (1.8-2.4)
[2025-01-28 09:17] LABS: CREATININE 0.2 mg/dL (0.55-1.3); PHOSPHOROUS 2.5 mg/dL (2.5-4.9)
[2025-01-28 10:02] LABS: ABSOLUTE IMMATURE GRANULOCYTES 0.09 x10^3/uL (0.0-0.031); BASOPHILS # 0.01 x10^3/uL (0.01-0.08); EOSINOPHIL % 0.5 % (0.7-5.8); EOSINOPHILS # 0.02 x10^3/uL (0.04-0.36); HEMATOCRIT 28.1 % (34.1-44.9); HEMOGLOBIN 8.7 g/dL (11.2-15.7); MONOCYTE # 0.57 x10^3/uL (0.24-0.86); MONOCYTE % 13.1 % (4.7-12.5); RDW 17.2 % (12.4-16.6)
[2025-01-28 12:27] LABS: PH,URINE >= 9.0 (5.0-8.0); URINE APPEARANCE CLEAR; URINE BILIRUBIN NEGATIVE (NEGATIVE); URINE COLOR YELLOW; URINE GLUCOSE (UA) NEGATIVE (NEGATIVE); URINE KETONE TRACE (NEGATIVE); URINE LEUK ESTERASE NEGATIVE (NEGATIVE); URINE NITRITE NEGATIVE (NEGATIVE); URINE PROTEIN TRACE (NEGATIVE)
[2025-01-28] MEDS: ACETAMINOPHEN 1000 MG/100 ML BAG IVPB SCH (13:26)
[2025-01-29] MEDS: ASPIRIN 81 MG CHEWABLE TABLETS PO SCH (09:52)
[2025-01-29] MEDS: MAGNESIUM 2GM/50ML STERILE WATER IVPB IVPB ONE (15:42)
[2025-01-30 08:42] LABS: BASOPHILS # 0.03 x10^3/uL (0.01-0.08); EOSINOPHIL % 0.4 % (0.7-5.8); EOSINOPHILS # 0.02 x10^3/uL (0.04-0.36); HEMATOCRIT 27.9 % (34.1-44.9); HEMOGLOBIN 8.5 g/dL (11.2-15.7); MCHC 30.5 g/dl (32.2-35.5); MEAN CELL VOLUME 94.6 fl (79.4-94.8); MEAN PLT VOLUME 10.1 fl (9.4-12.3); MONOCYTE # 0.57 x10^3/uL (0.24-0.86); MONOCYTE % 10.8 % (4.7-12.5); PLATELET COUNT # 155 x10^3/uL (182-369); RDW 16.8 % (12.4-16.6)
[2025-01-30 09:13] LABS: POTASSIUM 4.3 mmol/L (3.5-5.1)
[2025-01-30 09:14] LABS: CALCIUM 7.7 mg/dL (8.5-10.1)
[2025-01-30 09:15] LABS: BLOOD UREA NITROGEN 16.9 mg/dL (7-18); MAGNESIUM 1.6 mg/dL (1.8-2.4)
[2025-01-30 09:18] LABS: CREATININE 0.2 mg/dL (0.55-1.3)
[2025-01-30] MEDS: MAGNESIUM OXIDE 400 MG TABLET (FP) GT ONE (10:14)
[2025-01-31] MEDS: ASPIRIN 81 MG CHEWABLE TABLETS GT SCH (09:48)
[2025-01-31 12:30] VITALS: RESP 18
[2025-01-31] MEDS: ACETAMINOPHEN 650 MG/20.3 ML ORAL SOLUTION (CUPS) GT SCH (21:30)
[2025-02-02 09:20] LABS: ABSOLUTE IMMATURE GRANULOCYTES 0.11 x10^3/uL (0.0-0.031); BASOPHILS # 0.01 x10^3/uL (0.01-0.08); EOSINOPHIL % 0.3 % (0.7-5.8); EOSINOPHILS # 0.02 x10^3/uL (0.04-0.36); HEMATOCRIT 28.5 % (34.1-44.9); HEMOGLOBIN 8.9 g/dL (11.2-15.7); MCHC 31.2 g/dl (32.2-35.5); MEAN CELL VOLUME 93.1 fl (79.4-94.8); MEAN PLT VOLUME 10.2 fl (9.4-12.3); MONOCYTE # 0.82 x10^3/uL (0.24-0.86); MONOCYTE % 14.2 % (4.7-12.5); PLATELET COUNT # 146 x10^3/uL (182-369)
[2025-02-02 09:46] LABS: POTASSIUM 4.2 mmol/L (3.5-5.1)
[2025-02-02 09:49] LABS: BLOOD UREA NITROGEN 22.8 mg/dL (7-18); MAGNESIUM 1.6 mg/dL (1.8-2.4)
[2025-02-02 09:52] LABS: CREATININE 0.3 mg/dL (0.55-1.3); PHOSPHOROUS 3.4 mg/dL (2.5-4.9)
[2025-02-02] MEDS: MAGNESIUM SULF 50% (8.12 MEQ/2 ML-1 GM VIAL) IVPB ONE (11:29)
[2025-02-03 18:44] VITALS: BP 107/89; PULSE 89; TEMP 98.8
== END 2025-02-03 20:35 | DRG 393 ==
LOC: JER 01:23 → JERBED 04:47 → OBSVTOIN 04:47 → J7W 07:48 → J4W 21:59 → J5S 01-26 21:11
PROVIDERS: ADMIT Internal Medicine
PROC: 0DH63UZ Insertion of Feeding Device into Stomach, Percutaneous Approach (ICD-10-PCS; principal; 2025-01-22)
PROC: BD12ZZZ Fluoroscopy of Stomach (ICD-10-PCS; 2025-01-22)
DX: Z43.1 Encounter for attention to gastrostomy (principal); E43 Unspecified severe protein-calorie malnutrition; R53.2 Functional quadriplegia; Z68.1 Body mass index [BMI] 19.9 or less, adult; N39.0 Urinary tract infection, site not specified; I69.351 Hemiplegia and hemiparesis following cerebral infarction affecting right dominant side; R62.7 Adult failure to thrive; L89.022 Pressure ulcer of left elbow, stage 2; L89.012 Pressure ulcer of right elbow, stage 2; L89.892 Pressure ulcer of other site, stage 2; L89.610 Pressure ulcer of right heel, unstageable; L89.620 Pressure ulcer of left heel, unstageable; L89.150 Pressure ulcer of sacral region, unstageable; F03.90 Unspecified dementia, unspecified severity, without behavioral disturbance, psychotic disturbance, mood disturbance, and anxiety; I10 Essential (primary) hypertension; E78.5 Hyperlipidemia, unspecified; E11.9 Type 2 diabetes mellitus without complications; B96.1 Klebsiella pneumoniae [K. pneumoniae] as the cause of diseases classified elsewhere; R13.10 Dysphagia, unspecified; G40.909 Epilepsy, unspecified, not intractable, without status epilepticus
CPT/HCPCS: 0241U-QW; 36415; 49440; 70450-TC; 71045-TC-FY; 74018-TC-FY; 80048; 80053; 80164; 81003; 82550; 82728; 82803; 82962; 83036; 83540; 83550; 83605; 83735; 84100; 84132; 84484; 85025; 85027; 85610; 86850; 86900; 86901; 87086; 87186; 87635; 93005; 93010; 97162-GP; 99285-25; E0186; J0131